=== PATIENT | female | born 1955 | race Caucasian/White ===

== ENCOUNTER 2017-01-17 08:20 | Outpatient (CLI) | payer MEDICARE ==
[2017-01-17 08:48] LABS: #Basophils 0.1 thou/uL (0.0-0.2); #Eosinphils 0.2 thou/uL (0.0-0.7); #Lymphocytes 2.6 thou/uL (1.20-3.40); #Monocytes 0.5 thou/uL (0.11-0.59); #Neutrophils 4.2 thou/uL (1.40-6.50); %Basophils 1.6 % (0.0-1.0); %Eosinophils 2.7 % (0.0-10.0); %Lymphocytes 34.7 % (21.0-51.0); %Monocytes 6.3 % (0.0-10.0); %Neutrophils 54.8 % (42.0-75.0); Hemoglobin 13.6 g/dL (12.0-16.0); Mean Corpuscular Hemoglobin 30.2 pg (27.0-31.0); Mean Corpuscular Volume 88.7 fl (81.0-99.0); Mean Platelet Volume 10.7 fL (7.4-10.4); Platelet Count 211 thou/uL (130-400); RBC Distribution Width 12.3 % (11.5-14.5); Red Blood Cell (RBC) Count 4.52 mill/uL (4.20-5.40); White Blood Cell (WBC) Count 7.6 thou/uL (4.8-10.8)
[2017-01-17 09:17] LABS: ALT (SGPT) 18 U/L (8-55); AST (SGOT) 15 U/L (5-34); Albumin 4.1 g/dL (3.4-4.8); Alkaline Phosphatase 87 U/L (40-150); Anion Gap 13 mmol/L (10-20); BUN (Urea Nitrogen) 18 mg/dL (9.8-20.1); Bilirubin, Total 0.5 mg/dL (0.2-1.2); Calc. Creatinine Clearance 0 mL/min (70-130); Calcium 9.3 mg/dL (7.8-10.44); Carbon Dioxide 24 mmol/L (23-31); Chloride 108 mmol/L (98-107); Estimated GFR-MDRD 54; Glucose 119 mg/dL (80-115); Potassium 4.3 mmol/L (3.5-5.1); Protein, Total 7.1 g/dL (6.0-8.3); Sodium 141 mmol/L (136-145)
[2017-01-17 14:06] LABS: Bacteria/HPF Rare-Few HPF (None Seen); Bilirubin Negative (Negative); Blood, Urine Negative (Negative); Clarity Clear (Clear); Glucose, Urine (Dipstick) Negative (Negative); Leukocyte Negative (Negative); Nitrite Negative (Negative); Protein, Urine (Dipstick) Negative (Neg-Trace); RBC/HPF 0-3 HPF (0-3); Squamous Epithelial 0-3 HPF (0-3); Urobilinogen 0.2 mg/dL (0.2-1.0); WBC/HPF None Seen HPF (0-3)
== END 2017-01-17 08:21 | disposition home or self-care (01) ==
LOC: MADLABBHPM 08:20
PROVIDERS: ATTEND Family Medicine
DX: E11.9 Type 2 diabetes mellitus without complications (principal)
CPT/HCPCS: 36415; 80053; 81001; 83036; 84443; 85025

== ENCOUNTER 2018-12-27 11:05 | Emergency (ER) | payer MEDICARE ==
[2018-12-27 11:48] LABS: #Basophils 0.1 thou/uL (0.0-0.2); #Eosinphils 0.2 thou/uL (0.0-0.7); #Lymphocytes 2.2 thou/uL (1.20-3.40); #Monocytes 0.4 thou/uL (0.11-0.59); #Neutrophils 4.4 thou/uL (1.40-6.50); %Basophils 1.4 % (0.0-1.0); %Eosinophils 2.6 % (0.0-10.0); %Lymphocytes 30.6 % (21.0-51.0); %Monocytes 4.8 % (0.0-10.0); %Neutrophils 60.6 % (42.0-75.0); Mean Corpuscular HGB CONC 32.3 g/dL (32.0-36.0); Mean Corpuscular Hemoglobin 28.6 pg (27.0-31.0); Mean Corpuscular Volume 88.5 fL (78.0-98.0); Mean Platelet Volume 9.7 fL (7.4-10.4); Platelet Count 187 thou/uL (130-400); RBC Distribution Width 12.9 % (11.5-14.5); White Blood Cell (WBC) Count 7.3 thou/uL (4.8-10.8)
[2018-12-27 12:03] LABS: ALT (SGPT) 25 U/L (8-55); AST (SGOT) 21 U/L (5-34); Alkaline Phosphatase 108 U/L (40-150); Anion Gap 13 mmol/L (10-20); BUN (Urea Nitrogen) 13 mg/dL (9.8-20.1); Bilirubin, Total 0.5 mg/dL (0.2-1.2); Calc. Creatinine Clearance 0 mL/min (70-130); Calcium 9.1 mg/dL (7.8-10.44); Carbon Dioxide 24 mmol/L (23-31); Chloride 105 mmol/L (98-107); Estimated GFR-MDRD 42; Globulin 2.8 g/dL (2.4-3.5); Glucose 238 mg/dL (80-115); Protein, Total 6.8 g/dL (6.0-8.3); Sodium 138 mmol/L (136-145)
--- NOTE | 2018-12-27 12:11 | CT ---
CT BRAIN WITHOUT CONTRAST: HISTORY:Syncope, fall, hit head with loss of consciousness, dizziness COMPARISON:None FINDINGS: There are foci of decreased attenuation in the periventricular white matter, consistent with chronic small vessel ischemic disease. 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 No evidence of acute infarct, hemorrhage, midline shift or abnormal extra-axial fluid collections is seen. The ventricular size is appropriate and the basilar cisterns are patent. The bony calvarium is intact. The visualized paranasal sinuses and mastoid air cells are well aerated. IMPRESSION: No CT evidence of acute intracranial process.
--- NOTE | 2018-12-27 12:16 | CT ---
CT CHEST WITHOUT CONTRAST :HISTORY: left-sided rib pain after fall FINDINGS: Absence of IV contrast reduces the sensitivity of the exam particularly for evaluation of mediastinal hilar vascular structures. Vascular injury cannot be excluded completely on the study. No pleural or pericardial effusions are seen. No pneumothoraces or pulmonary contusions are noted. There are postoperative changes of median sternotomy. There are vascular calcifications without aneur ysm of the thoracic aorta. There are degenerative changes in the spine. No acute osseous abnormalities are identified. Upper abdominal tomograms demonstrate cholelithiasis. A small hiatal hernia is present. IMPRESSION: No evidence of pulmonary contusions or pneumothorax.
--- NOTE | 2018-12-27 13:01 | CT ---
CERVICAL SPINE CT SCAN WITHOUT IV CONTRAST: HISTORY: Neck pain following injury from a fall yesterday. FINDINGS: Anterior cervical fusion changes are noted at C5, C6, and C7. Disk-osteophytosis at C4-C5. Generali zed facet arthrosis. No evidence for acute fracture or facet dislocation. No prevertebral soft tiss ue swelling. IMPRESSION: No acute fracture or facet dislocation. Anterior cervical fusion changes at C5, C6, and C7. POS: [facility]
[2018-12-27] MEDS ORDERED: Aspirin 325 MG TAB ONE (13:11)
[2018-12-27] MEDS ORDERED: Carvedilol 6.25 MG TAB ONE (16:13)
[2018-12-27] MEDS ORDERED: Lisinopril 10 MG TAB ONE (16:13)
== END 2018-12-27 21:09 | disposition short-term general hospital (02) ==
LOC: MADERS 11:05
DX: R55 Syncope and collapse (principal); E11.9 Type 2 diabetes mellitus without complications; E78.5 Hyperlipidemia, unspecified; I10 Essential (primary) hypertension; Z79.84 Long term (current) use of oral hypoglycemic drugs; Z79.82 Long term (current) use of aspirin; Z79.899 Other long term (current) drug therapy
CPT/HCPCS: 36416; 70450; 71250; 72125; 80053; 84484; 85025; 93005; 94760

== ENCOUNTER 2019-02-10 19:45 | Emergency (ER) | payer MEDICARE ==
[~2019-02-10 19:45] MED LIST: Iopamidol 370 76% 125 ML VIAL FS ONE; Sodium Chloride 0.9% 100 ML BAG ONE
[2019-02-10 20:12] LABS: #Basophils 0.1 thou/uL (0.0-0.2); #Eosinphils 0.2 thou/uL (0.0-0.7); #Lymphocytes 2.4 thou/uL (1.20-3.40); #Monocytes 0.7 thou/uL (0.11-0.59); #Neutrophils 4.4 thou/uL (1.40-6.50); %Basophils 1.6 % (0.0-1.0); %Eosinophils 3.1 % (0.0-10.0); %Lymphocytes 30.4 % (21.0-51.0); %Monocytes 8.4 % (0.0-10.0); %Neutrophils 56.5 % (42.0-75.0); Hemoglobin 13.9 g/dL (12.0-16.0); Mean Corpuscular HGB CONC 33.4 g/dL (32.0-36.0); Mean Corpuscular Hemoglobin 28.7 pg (27.0-31.0); Mean Corpuscular Volume 85.9 fL (78.0-98.0); Mean Platelet Volume 9.7 fL (7.4-10.4); Platelet Count 196 thou/uL (130-400); RBC Distribution Width 11.9 % (11.5-14.5); Red Blood Cell (RBC) Count 4.85 mill/uL (4.20-5.40); White Blood Cell (WBC) Count 7.8 thou/uL (4.8-10.8)
[2019-02-10 20:20] LABS: INR-International Normal Ratio 0.9; Prothrombin Time 12.1 SEC (12.0-14.7)
[2019-02-10 20:29] LABS: ALT (SGPT) 23 U/L (8-55); AST (SGOT) 23 U/L (5-34); Albumin 4.4 g/dL (3.4-4.8); Alkaline Phosphatase 112 U/L (40-150); Anion Gap 17 mmol/L (10-20); BUN (Urea Nitrogen) 14 mg/dL (9.8-20.1); Bilirubin, Total 0.4 mg/dL (0.2-1.2); Calc. Creatinine Clearance 0 mL/min (70-130); Calcium 9.1 mg/dL (7.8-10.44); Carbon Dioxide 23 mmol/L (23-31); Chloride 106 mmol/L (98-107); Estimated GFR-MDRD 45; Globulin 2.7 g/dL (2.4-3.5); Glucose 148 mg/dL (80-115); Protein, Total 7.1 g/dL (6.0-8.3); Sodium 142 mmol/L (136-145)
[2019-02-10] MEDS ORDERED: Ondansetron PF 4 MG/2 ML Vial ONE (20:46)
[2019-02-10] MEDS ORDERED: Aspirin Chewable 81 MG TAB ONE (21:07)
--- NOTE | 2019-02-10 21:53 | CT ---
CT BRAIN WITHOUT CONTRAST: HISTORY: Left arm and leg tingling with high blood pressure. Weakness. COMPARISON: 12/27/2018 TECHNIQUE: Multiple contiguous axial images were obtained in a CT of the brain without contrast. Sagittal and c oronal reformats were performed. FINDINGS: There are diffuse scattered hypodensities in the subcortical and periventricular white matter, likely secondary to small vessel ischemic disease. No large confluent infarction is seen. There is no alexander dence of hydrocephalus, intracranial hemorrhage, or extraaxial fluid collection. The calvarium and overlying soft tissues are unremarkable. The visualized paranasal sinuses and mast oid air cells are well aerated. IMPRESSION: No evidence of acute intracranial abnormality. POS: [facility]
--- NOTE | 2019-02-10 23:09 | CT ---
CTA HEAD WITH IV CONTRAST AND 3D POST PROCESSING: HISTORY: Left arm and left leg tingling with high blood pressure and weakness. FINDINGS: Vascular calcifications are present. There is good flow in the vertebrobasilar and carotid artery sy stems, intracranially. A dominant left vertebral artery is seen. No major branch occlusion, high-gr rafi stenosis, or aneurysm formation is seen. POS: [facility]
== END 2019-02-10 22:48 | disposition short-term general hospital (02) ==
LOC: MADERS 19:45
DX: I10 Essential (primary) hypertension (principal); E11.9 Type 2 diabetes mellitus without complications; E78.5 Hyperlipidemia, unspecified; Z79.84 Long term (current) use of oral hypoglycemic drugs; Z79.82 Long term (current) use of aspirin; Z79.899 Other long term (current) drug therapy
CPT/HCPCS: 70450; 70496; 80053; 84484; 85025; 85610; 93005; 96374; J2405; J3490; Q9967

== ENCOUNTER 2019-07-25 07:20 | Emergency (ER) | payer MEDICARE, OTHER ==
--- NOTE | 2019-07-25 07:44 | RAD ---
XR Chest 1 View Portable History: Weakness and nausea Comparison: Radiograph 2015 Findings: The lungs are clear. No pneumothorax. No effusion. Right axillary surgical clips. Multiple midline sternotomy wires. ACDF hardware lower cervical spine. No acute osseous abnormality. Impression: No acute intrathoracic abnormality.
[2019-07-25 07:50] LABS: #Basophils 0.1 thou/uL (0.0-0.2); #Eosinphils 0.1 thou/uL (0.0-0.7); #Monocytes 0.2 thou/uL (0.11-0.59); #Neutrophils 5.2 thou/uL (1.40-6.50); %Basophils 1.3 % (0.0-1.0); %Eosinophils 1.5 % (0.0-10.0); %Lymphocytes 26.2 % (21.0-51.0); %Monocytes 2.2 % (0.0-10.0); %Neutrophils 68.9 % (42.0-75.0); Hemoglobin 15.5 g/dL (12.0-16.0); Mean Corpuscular HGB CONC 30.5 g/dL (32.0-36.0); Mean Corpuscular Hemoglobin 26.8 pg (27.0-31.0); Mean Corpuscular Volume 87.8 fL (78.0-98.0); Mean Platelet Volume 10.8 fL (7.4-10.4); Platelet Count 189 thou/uL (130-400); RBC Distribution Width 12.9 % (11.5-14.5); Red Blood Cell (RBC) Count 5.79 mill/uL (4.20-5.40); White Blood Cell (WBC) Count 7.5 thou/uL (4.8-10.8)
[2019-07-25 08:04] LABS: ALT (SGPT) 23 U/L (8-55); AST (SGOT) 29 U/L (5-34); Alkaline Phosphatase 97 U/L (40-110); Anion Gap 16 mmol/L (10-20); BUN (Urea Nitrogen) 11 mg/dL (9.8-20.1); Calc. Creatinine Clearance 0 mL/min (70-130); Calcium 8.8 mg/dL (7.8-10.44); Carbon Dioxide 19 mmol/L (23-31); Chloride 109 mmol/L (98-107); Estimated GFR-MDRD 40; Globulin 2.8 g/dL (2.4-3.5); Glucose 143 mg/dL (80-115); Magnesium 1.7 mg/dL (1.6-2.6); Potassium 3.9 mmol/L (3.5-5.1); Protein, Total 6.8 g/dL (6.0-8.3); Sodium 140 mmol/L (136-145)
== END 2019-07-25 08:52 | disposition left against medical advice (07) ==
LOC: MADERS 07:20
DX: R53.1 Weakness (principal); R11.0 Nausea; E78.5 Hyperlipidemia, unspecified; I10 Essential (primary) hypertension; E11.9 Type 2 diabetes mellitus without complications; Z79.82 Long term (current) use of aspirin; Z79.891 Long term (current) use of opiate analgesic; Z79.84 Long term (current) use of oral hypoglycemic drugs; Z86.73 Personal history of transient ischemic attack (TIA), and cerebral infarction without residual deficits
CPT/HCPCS: 36415; 71045; 80053; 83605; 83735; 84484; 85025; 93005

== ENCOUNTER 2020-05-05 20:50 | Emergency (ER) | payer MEDICARE, OTHER ==
[2020-05-05 21:11] LABS: #Basophils 0.2 thou/uL (0.0-0.2); #Eosinphils 0.2 thou/uL (0.0-0.7); #Lymphocytes 3.9 thou/uL (1.20-3.40); #Monocytes 0.8 thou/uL (0.11-0.59); #Neutrophils 6.8 thou/uL (1.40-6.50); %Basophils 1.3 % (0.0-1.0); %Lymphocytes 32.5 % (21.0-51.0); %Neutrophils 57.2 % (42.0-75.0); Hemoglobin 16.2 g/dL (12.0-16.0); Mean Corpuscular Hemoglobin 28.8 pg (27.0-31.0); Mean Corpuscular Volume 87.3 fL (78.0-98.0); Mean Platelet Volume 9.5 fL (7.4-10.4); Platelet Count 274 thou/uL (130-400); RBC Distribution Width 11.9 % (11.5-14.5); Red Blood Cell (RBC) Count 5.63 mill/uL (4.20-5.40); White Blood Cell (WBC) Count 11.9 thou/uL (4.8-10.8)
--- NOTE | 2020-05-05 21:25 | RAD ---
CHEST ONE VIEW: 05/05/20 COMPARISON: 07/25/19. FINDINGS: There are sternotomy wires. There is atherosclerosis of the aorta. Normal cardiac silhouette. Pulmona ry vessels and hilum are normal. Costophrenic angles are clear. No mass or consolidation. No pneumoth orax or acute osseous abnormalities. IMPRESSION: Atherosclerosis. No acute cardiopulmonary process. POS: [facility]
[2020-05-05 21:31] LABS: ALT (SGPT) 27 U/L (8-55); AST (SGOT) 22 U/L (5-34); Albumin 4.3 g/dL (3.4-4.8); Alkaline Phosphatase 114 U/L (40-110); Anion Gap 22 mmol/L (10-20); BUN (Urea Nitrogen) 14 mg/dL (9.8-20.1); Bilirubin, Total 0.6 mg/dL (0.2-1.2); CK (CPK) 88 U/L (29-168); Calc. Creatinine Clearance 0 mL/min (70-130); Carbon Dioxide 17 mmol/L (23-31); Chloride 104 mmol/L (98-107); Estimated GFR-MDRD 36; Glucose 201 mg/dL (80-115); Lipase 55 U/L (8-78); Potassium 3.6 mmol/L (3.5-5.1); Protein, Total 7.3 g/dL (6.0-8.3); Sodium 139 mmol/L (136-145)
== END 2020-05-05 23:40 | disposition short-term general hospital (02) ==
LOC: MADERS 20:50
DX: R53.1 Weakness (principal); R61 Generalized hyperhidrosis; E11.9 Type 2 diabetes mellitus without complications; E78.5 Hyperlipidemia, unspecified; I10 Essential (primary) hypertension; Z79.82 Long term (current) use of aspirin; Z79.84 Long term (current) use of oral hypoglycemic drugs; Z79.899 Other long term (current) drug therapy; Z86.73 Personal history of transient ischemic attack (TIA), and cerebral infarction without residual deficits; Z85.3 Personal history of malignant neoplasm of breast
CPT/HCPCS: 71045; 80053; 82550; 83690; 84484; 85025; 93005

== ENCOUNTER 2020-10-10 09:43 | Emergency (ER) | payer MEDICARE, OTHER | END 2020-10-10 11:05 | disposition home or self-care (01) | LOC: MADERS 09:43 | DX: S42.114A Nondisplaced fracture of body of scapula, right shoulder, initial encounter for closed fracture (principal); E78.5 Hyperlipidemia, unspecified; E11.9 Type 2 diabetes mellitus without complications; I10 Essential (primary) hypertension; Z85.3 Personal history of malignant neoplasm of breast; Z86.73 Personal history of transient ischemic attack (TIA), and cerebral infarction without residual deficits; W19.XXXA Unspecified fall, initial encounter ==

== ENCOUNTER 2021-05-28 20:41 | Emergency (ER) | payer MEDICARE, OTHER | END 2021-05-28 21:46 | disposition left against medical advice (07) | LOC: MADERS 20:41 | DX: Z53.21 Procedure and treatment not carried out due to patient leaving prior to being seen by health care provider (principal) ==

== ENCOUNTER 2021-09-17 16:45 | Emergency (ER) | payer MEDICARE, OTHER ==
[2021-09-17 17:35] LABS: ALT (SGPT) 21 U/L (8-55); AST (SGOT) 32 U/L (5-34); Albumin 3.4 g/dL (3.4-4.8); Alkaline Phosphatase 68 U/L (40-110); Anion Gap 15 mmol/L (10-20); BUN (Urea Nitrogen) 16 mg/dL (9.8-20.1); Bilirubin, Total 0.6 mg/dL (0.2-1.2); Calc. Creatinine Clearance 0 mL/min (70-130); Calcium 7.9 mg/dL (7.8-10.44); Carbon Dioxide 21 mmol/L (23-31); Chloride 106 mmol/L (98-107); Globulin 2.5 g/dL (2.4-3.5); Glucose 113 mg/dL (80-115); Magnesium 1.6 mg/dL (1.6-2.6); Potassium 3.8 mmol/L (3.5-5.1); Protein, Total 5.9 g/dL (5.8-8.1); Sodium 138 mmol/L (136-145)
[2021-09-17 17:45] LABS: Band 2 % (5-11); Eosinophils 3 % (0-10); Hemoglobin 14.5 g/dL (12.0-16.0); Lymphocytes 12 % (21-51); MDiff Complete? YES; Mean Corpuscular Hemoglobin 28.7 pg (27.0-31.0); Mean Corpuscular Volume 86.8 fL (78.0-98.0); Mean Platelet Volume 9.7 fL (7.4-10.4); Monocytes 7 % (0-10); Neutrophil 49 % (42-75); Platelet Count 146 thou/uL (130-400); Platelet Morphology Comment Appears Adequate; RBC Distribution Width 11.4 % (11.5-14.5); RBC Morphology Normal; Reactive Lymphocytes 27 % (0-10); Red Blood Cell (RBC) Count 5.06 mill/uL (4.20-5.40); White Blood Cell (WBC) Count 6.2 thou/uL (4.8-10.8)
[2021-09-17 18:54] LABS: Bilirubin Negative (Negative); Blood, Urine Negative (Negative); Clarity Slightly Cloudy (Clear); Glucose, Urine (Dipstick) Negative (Negative); Ketone, Urine Negative (Negative); Leukocyte Small (Negative); Nitrite Negative (Negative); Protein, Urine (Dipstick) Negative (Neg-Trace); Urobilinogen 0.2 mg/dL (Less than 2); pH, Urine 6.5 (5.0-9.0)
[2021-09-17 18:59] LABS: Bacteria/HPF Rare-Few HPF (None Seen); RBC/HPF 0-3 HPF (0-3); WBC/HPF 21-50 HPF (0-3)
[2021-09-17] MEDS ORDERED: Sodium Chloride 0.9% 100 ML ONE (19:22)
[2021-09-17] MEDS ORDERED: cefTRIAXone\\ROCEPHIN 1 GM VIAL ONE (19:22)
== END 2021-09-17 20:00 | disposition home or self-care (01) ==
LOC: MADERS 16:45
DX: N39.0 Urinary tract infection, site not specified (principal); R53.1 Weakness; I45.2 Bifascicular block
CPT/HCPCS: 36415; 80053; 81003; 81015; 83735; 83880; 84443; 84484; 85025; 93005; 96365; J0696; J3490

== ENCOUNTER 2021-09-27 16:04 | Inpatient (IN) | payer MEDICARE, OTHER ==
[2021-09-27] MEDS ORDERED: Senokot S 8.6-50 MG TAB PO PRN (22:24)
[2021-09-27] MEDS ORDERED: Ondansetron ODT 4 MG TAB PO PRN (22:24)
[2021-09-27] MEDS ORDERED: Guaifenesin DM 100-10/5 ML UDCUP PO PRN (22:24)
[2021-09-27] MEDS ORDERED: Albuterol 200 PUFF (6.7GM INHALER) INH PRN (22:26)
[2021-09-27 23:08] LABS: Bilirubin Negative (Negative); Blood, Urine Small (Negative); Clarity Clear (Clear); Glucose, Urine (Dipstick) Negative (Negative); Ketone, Urine Negative (Negative); Leukocyte Small (Negative); Nitrite Negative (Negative); Protein, Urine (Dipstick) Negative (Neg-Trace); Urobilinogen 0.2 mg/dL (Less than 2); pH, Urine 6.5 (5.0-9.0)
[2021-09-27 23:25] LABS: Bacteria/HPF None Seen HPF (None Seen); Calcium Oxalate Crystals 1+ HPF (None Seen); Squamous Epithelial None Seen HPF (0-3); Transitional Epithelial None Seen HPF (None Seen); Yeast-Hyphae 1+ HPF (None Seen)
[2021-09-28] MEDS: Enoxaparin Sodium 40 MG/0.4 ML SYRINGE SC SCH (09:52)
[2021-09-28] MEDS: Cholecalciferol 1,000 UNITS (25 MCG) TAB PO SCH (09:53)
[2021-09-28] MEDS: Lisinopril 5 MG TAB PO SCH ×2 (09:53→20:53)
[2021-09-28] MEDS: Carvedilol 6.25 MG TAB PO SCH ×2 (09:53→20:54)
[2021-09-28] MEDS: Zinc Sulfate 220 MG CAP PO SCH (09:53)
[2021-09-28] MEDS: Ascorbic Acid 500 mg Chewable Tablet PO SCH (09:53)
[2021-09-28] MEDS: Ezetimibe 10 MG TAB PO SCH (09:53)
[2021-09-28] MEDS: NIFEdipine XL 30 MG TAB PO SCH (10:44)
[2021-09-28] MEDS: Tamsulosin HCl 0.4 MG CAP PO SCH (20:53)
[2021-09-28] MEDS: Mirtazapine 15 MG TAB PO SCH (20:54)
[2021-09-29] MEDS: Enoxaparin Sodium 40 MG/0.4 ML SYRINGE SC SCH (09:05)
[2021-09-29] MEDS: NIFEdipine XL 30 MG TAB PO SCH (09:05)
[2021-09-29] MEDS: Ascorbic Acid 500 mg Chewable Tablet PO SCH (09:06)
[2021-09-29] MEDS: Ezetimibe 10 MG TAB PO SCH (09:06)
[2021-09-29] MEDS: Lisinopril 5 MG TAB PO SCH ×2 (09:06→20:23)
[2021-09-29] MEDS: Cholecalciferol 1,000 UNITS (25 MCG) TAB PO SCH (09:06)
[2021-09-29] MEDS: Carvedilol 6.25 MG TAB PO SCH ×2 (09:06→20:23)
[2021-09-29] MEDS: Zinc Sulfate 220 MG CAP PO SCH (09:06)
[2021-09-29] MEDS: Acetaminophen 325 MG TAB PO PRN (20:23)
[2021-09-29] MEDS: Mirtazapine 15 MG TAB PO SCH (20:24)
[2021-09-29] MEDS: Tamsulosin HCl 0.4 MG CAP PO SCH (20:24)
[2021-09-30] MEDS: Ascorbic Acid 500 mg Chewable Tablet PO SCH (08:43)
[2021-09-30] MEDS: NIFEdipine XL 30 MG TAB PO SCH (08:43)
[2021-09-30] MEDS: Zinc Sulfate 220 MG CAP PO SCH (08:43)
[2021-09-30] MEDS: Enoxaparin Sodium 40 MG/0.4 ML SYRINGE SC SCH (08:43)
[2021-09-30] MEDS: Cholecalciferol 1,000 UNITS (25 MCG) TAB PO SCH (08:43)
[2021-09-30] MEDS: Lisinopril 5 MG TAB PO SCH ×2 (08:43→21:40)
[2021-09-30] MEDS: Ezetimibe 10 MG TAB PO SCH (08:43)
[2021-09-30] MEDS: Carvedilol 6.25 MG TAB PO SCH ×2 (08:43→21:40)
[2021-09-30] MEDS: Acetaminophen 325 MG TAB PO PRN (08:44)
[2021-09-30 11:12] LABS: #Basophils 0.2 thou/uL (0.0-0.2); #Eosinphils 0.5 thou/uL (0.0-0.7); #Monocytes 1.2 thou/uL (0.11-0.59); #Neutrophils 11.5 thou/uL (1.40-6.50); %Basophils 1.2 % (0.0-1.0); %Eosinophils 3.5 % (0.0-10.0); %Lymphocytes 12.8 % (21.0-51.0); %Monocytes 7.8 % (0.0-10.0); %Neutrophils 74.7 % (42.0-75.0); Hemoglobin 13.6 g/dL (12.0-16.0); Mean Corpuscular HGB CONC 32.8 g/dL (32.0-36.0); Mean Corpuscular Hemoglobin 28.7 pg (27.0-31.0); Mean Corpuscular Volume 87.2 fL (78.0-98.0); Mean Platelet Volume 8.1 fL (7.4-10.4); Platelet Count 243 thou/uL (130-400); RBC Distribution Width 11.3 % (11.5-14.5); Red Blood Cell (RBC) Count 4.74 mill/uL (4.20-5.40); White Blood Cell (WBC) Count 15.4 thou/uL (4.8-10.8)
[2021-09-30] MEDS ORDERED: Calcium Carbonate 500 MG ChewTAB PO PRN (11:36)
[2021-09-30] MEDS: Famotidine 20 MG TAB PO SCH ×2 (12:10→21:40)
[2021-09-30] MEDS: metFORMIN 500 MG TAB PO SCH (17:08)
[2021-09-30] MEDS: Mirtazapine 15 MG TAB PO SCH (21:40)
[2021-09-30] MEDS: Tamsulosin HCl 0.4 MG CAP PO SCH (21:40)
[2021-10-01] MEDS ORDERED: predniSONE 20 MG TAB PO SCH (08:00)
[2021-10-01] MEDS: Ezetimibe 10 MG TAB PO SCH (08:57)
[2021-10-01] MEDS: Enoxaparin Sodium 40 MG/0.4 ML SYRINGE SC SCH (08:57)
[2021-10-01] MEDS: NIFEdipine XL 30 MG TAB PO SCH (08:57)
[2021-10-01] MEDS: Carvedilol 6.25 MG TAB PO SCH ×2 (08:57→20:58)
[2021-10-01] MEDS: Zinc Sulfate 220 MG CAP PO SCH (08:57)
[2021-10-01] MEDS: metFORMIN 500 MG TAB PO SCH ×2 (08:57→17:37)
[2021-10-01] MEDS: Ascorbic Acid 500 mg Chewable Tablet PO SCH (08:58)
[2021-10-01] MEDS: Lisinopril 5 MG TAB PO SCH ×2 (08:58→20:58)
[2021-10-01] MEDS: Cholecalciferol 1,000 UNITS (25 MCG) TAB PO SCH (08:58)
[2021-10-01] MEDS: Famotidine 20 MG TAB PO SCH ×2 (09:01→20:58)
[2021-10-01] MEDS: Tamsulosin HCl 0.4 MG CAP PO SCH (20:57)
[2021-10-01] MEDS: Mirtazapine 15 MG TAB PO SCH (20:57)
[2021-10-01] MEDS ORDERED: Dextrose 5% in Water 1,000 ML IV PRN (21:00)
[2021-10-01] MEDS ORDERED: Dextrose 50% Abboject 50 ML SYRINGE IVP PRN (21:00)
[2021-10-01] MEDS: HumaLOG 300 UNITS/3 ML VIAL SC PRN (21:20)
[2021-10-02] MEDS ORDERED: predniSONE 20 MG TAB PO SCH (08:00)
[2021-10-02] MEDS: NIFEdipine XL 30 MG TAB PO SCH (08:18)
[2021-10-02] MEDS: metFORMIN 500 MG TAB PO SCH ×2 (08:18→16:59)
[2021-10-02] MEDS: Ascorbic Acid 500 mg Chewable Tablet PO SCH (08:18)
[2021-10-02] MEDS: Enoxaparin Sodium 40 MG/0.4 ML SYRINGE SC SCH (08:18)
[2021-10-02] MEDS: Zinc Sulfate 220 MG CAP PO SCH (08:18)
[2021-10-02] MEDS: Cholecalciferol 1,000 UNITS (25 MCG) TAB PO SCH (08:18)
[2021-10-02] MEDS: Carvedilol 6.25 MG TAB PO SCH ×2 (08:18→21:21)
[2021-10-02] MEDS: Lisinopril 5 MG TAB PO SCH ×2 (08:19→21:21)
[2021-10-02] MEDS: Ezetimibe 10 MG TAB PO SCH (08:19)
[2021-10-02] MEDS: Famotidine 20 MG TAB PO SCH ×2 (08:20→21:20)
[2021-10-02] MEDS: HumaLOG 300 UNITS/3 ML VIAL SC PRN ×3 (08:26→16:59)
[2021-10-02] MEDS ORDERED: predniSONE 10 MG TAB PO SCH (08:30)
[2021-10-02] MEDS: Mirtazapine 15 MG TAB PO SCH (21:20)
[2021-10-02] MEDS: Tamsulosin HCl 0.4 MG CAP PO SCH (21:20)
[2021-10-03] MEDS ORDERED: predniSONE 10 MG TAB PO SCH (08:00)
[2021-10-03] MEDS: Enoxaparin Sodium 40 MG/0.4 ML SYRINGE SC SCH (09:52)
[2021-10-03] MEDS: Zinc Sulfate 220 MG CAP PO SCH (09:52)
[2021-10-03] MEDS: metFORMIN 500 MG TAB PO SCH ×2 (09:53→17:43)
[2021-10-03] MEDS: NIFEdipine XL 30 MG TAB PO SCH (09:53)
[2021-10-03] MEDS: Lisinopril 5 MG TAB PO SCH ×2 (09:53→20:25)
[2021-10-03] MEDS: Cholecalciferol 1,000 UNITS (25 MCG) TAB PO SCH (09:53)
[2021-10-03] MEDS: Carvedilol 6.25 MG TAB PO SCH ×2 (09:53→20:25)
[2021-10-03] MEDS: Ezetimibe 10 MG TAB PO SCH (09:54)
[2021-10-03] MEDS: Famotidine 20 MG TAB PO SCH ×2 (09:54→20:26)
[2021-10-03] MEDS: Ascorbic Acid 500 mg Chewable Tablet PO SCH (09:54)
[2021-10-03] MEDS: Mirtazapine 15 MG TAB PO SCH (20:25)
[2021-10-03] MEDS: Tamsulosin HCl 0.4 MG CAP PO SCH (20:26)
[2021-10-04] MEDS ORDERED: predniSONE 20 MG TAB PO SCH (08:00)
[2021-10-04] MEDS: metFORMIN 500 MG TAB PO SCH ×2 (09:40→17:07)
[2021-10-04] MEDS: Ascorbic Acid 500 mg Chewable Tablet PO SCH (09:40)
[2021-10-04] MEDS: Ezetimibe 10 MG TAB PO SCH (09:41)
[2021-10-04] MEDS: Lisinopril 5 MG TAB PO SCH ×2 (09:41→21:11)
[2021-10-04] MEDS: Enoxaparin Sodium 40 MG/0.4 ML SYRINGE SC SCH (09:41)
[2021-10-04] MEDS: Zinc Sulfate 220 MG CAP PO SCH (09:41)
[2021-10-04] MEDS: Cholecalciferol 1,000 UNITS (25 MCG) TAB PO SCH (09:41)
[2021-10-04] MEDS: Carvedilol 6.25 MG TAB PO SCH ×2 (09:41→21:10)
[2021-10-04] MEDS: Famotidine 20 MG TAB PO SCH ×2 (09:41→21:11)
[2021-10-04] MEDS: NIFEdipine XL 30 MG TAB PO SCH (09:43)
[2021-10-04] MEDS: HumaLOG 300 UNITS/3 ML VIAL SC PRN ×3 (11:56→21:15)
[2021-10-04] MEDS: Mirtazapine 15 MG TAB PO SCH (21:11)
[2021-10-04] MEDS: Tamsulosin HCl 0.4 MG CAP PO SCH (21:12)
[2021-10-05] MEDS: NIFEdipine XL 30 MG TAB PO SCH (08:23)
[2021-10-05] MEDS: Carvedilol 6.25 MG TAB PO SCH ×2 (08:24→21:37)
[2021-10-05] MEDS: Cholecalciferol 1,000 UNITS (25 MCG) TAB PO SCH (08:24)
[2021-10-05] MEDS: predniSONE 20 MG TAB PO SCH (08:24)
[2021-10-05] MEDS: Famotidine 20 MG TAB PO SCH ×2 (08:24→21:37)
[2021-10-05] MEDS: Ezetimibe 10 MG TAB PO SCH (08:24)
[2021-10-05] MEDS: Zinc Sulfate 220 MG CAP PO SCH (08:24)
[2021-10-05] MEDS: Ascorbic Acid 500 mg Chewable Tablet PO SCH (08:24)
[2021-10-05] MEDS: Lisinopril 5 MG TAB PO SCH ×2 (08:24→21:37)
[2021-10-05] MEDS: Enoxaparin Sodium 40 MG/0.4 ML SYRINGE SC SCH (08:25)
[2021-10-05] MEDS: metFORMIN 500 MG TAB PO SCH ×2 (08:25→17:16)
[2021-10-05] MEDS: HumaLOG 300 UNITS/3 ML VIAL SC PRN ×2 (11:50→17:15)
[2021-10-05] MEDS: Mirtazapine 15 MG TAB PO SCH (21:37)
[2021-10-05] MEDS: Tamsulosin HCl 0.4 MG CAP PO SCH (21:37)
[2021-10-06] MEDS: Acetaminophen 325 MG TAB PO PRN (01:57)
[2021-10-06] MEDS: NIFEdipine XL 30 MG TAB PO SCH (08:19)
[2021-10-06] MEDS: Zinc Sulfate 220 MG CAP PO SCH (08:19)
[2021-10-06] MEDS: Ezetimibe 10 MG TAB PO SCH (08:19)
[2021-10-06] MEDS: Enoxaparin Sodium 40 MG/0.4 ML SYRINGE SC SCH (08:19)
[2021-10-06] MEDS: Ascorbic Acid 500 mg Chewable Tablet PO SCH (08:19)
[2021-10-06] MEDS: Carvedilol 6.25 MG TAB PO SCH ×2 (08:20→20:32)
[2021-10-06] MEDS: Cholecalciferol 1,000 UNITS (25 MCG) TAB PO SCH (08:20)
[2021-10-06] MEDS: predniSONE 20 MG TAB PO SCH (08:20)
[2021-10-06] MEDS: metFORMIN 500 MG TAB PO SCH ×2 (08:20→17:13)
[2021-10-06] MEDS: Lisinopril 5 MG TAB PO SCH ×2 (08:20→20:32)
[2021-10-06] MEDS: Famotidine 20 MG TAB PO SCH ×2 (08:21→20:32)
[2021-10-06] MEDS: HumaLOG 300 UNITS/3 ML VIAL SC PRN (17:13)
[2021-10-06] MEDS: Tamsulosin HCl 0.4 MG CAP PO SCH (20:32)
[2021-10-06] MEDS: Mirtazapine 15 MG TAB PO SCH (20:32)
[2021-10-07] MEDS: Ascorbic Acid 500 mg Chewable Tablet PO SCH (08:20)
[2021-10-07] MEDS: predniSONE 20 MG TAB PO SCH (08:21)
[2021-10-07] MEDS: metFORMIN 500 MG TAB PO SCH ×2 (08:21→16:44)
[2021-10-07] MEDS: Carvedilol 6.25 MG TAB PO SCH ×2 (08:22→20:11)
[2021-10-07] MEDS: Ezetimibe 10 MG TAB PO SCH (08:23)
[2021-10-07] MEDS: Enoxaparin Sodium 40 MG/0.4 ML SYRINGE SC SCH (08:23)
[2021-10-07] MEDS: Cholecalciferol 1,000 UNITS (25 MCG) TAB PO SCH (08:23)
[2021-10-07] MEDS: Lisinopril 5 MG TAB PO SCH ×2 (08:24→20:10)
[2021-10-07] MEDS: Famotidine 20 MG TAB PO SCH ×2 (08:24→20:11)
[2021-10-07] MEDS: NIFEdipine XL 30 MG TAB PO SCH (08:25)
[2021-10-07] MEDS: Zinc Sulfate 220 MG CAP PO SCH (08:26)
[2021-10-07] MEDS: HumaLOG 300 UNITS/3 ML VIAL SC PRN (16:45)
[2021-10-07] MEDS: Mirtazapine 15 MG TAB PO SCH (20:10)
[2021-10-07] MEDS: Tamsulosin HCl 0.4 MG CAP PO SCH (20:11)
[2021-10-08] MEDS: Cholecalciferol 1,000 UNITS (25 MCG) TAB PO SCH (08:49)
[2021-10-08] MEDS: NIFEdipine XL 30 MG TAB PO SCH (08:49)
[2021-10-08] MEDS: Enoxaparin Sodium 40 MG/0.4 ML SYRINGE SC SCH (08:49)
[2021-10-08] MEDS: Zinc Sulfate 220 MG CAP PO SCH (08:49)
[2021-10-08] MEDS: Famotidine 20 MG TAB PO SCH ×2 (08:50→20:32)
[2021-10-08] MEDS: Ezetimibe 10 MG TAB PO SCH (08:50)
[2021-10-08] MEDS: metFORMIN 500 MG TAB PO SCH ×2 (08:50→17:18)
[2021-10-08] MEDS: Carvedilol 6.25 MG TAB PO SCH ×2 (08:50→20:33)
[2021-10-08] MEDS: Ascorbic Acid 500 mg Chewable Tablet PO SCH (08:50)
[2021-10-08] MEDS: predniSONE 5 MG TAB PO SCH (08:50)
[2021-10-08] MEDS: Lisinopril 5 MG TAB PO SCH ×2 (08:50→20:33)
[2021-10-08] MEDS: HumaLOG 300 UNITS/3 ML VIAL SC PRN (17:19)
[2021-10-08] MEDS: Mirtazapine 15 MG TAB PO SCH (20:33)
[2021-10-08] MEDS: Tamsulosin HCl 0.4 MG CAP PO SCH (20:34)
[2021-10-09] MEDS: NIFEdipine XL 30 MG TAB PO SCH (08:43)
[2021-10-09] MEDS: Enoxaparin Sodium 40 MG/0.4 ML SYRINGE SC SCH (08:43)
[2021-10-09] MEDS: Cholecalciferol 1,000 UNITS (25 MCG) TAB PO SCH (08:44)
[2021-10-09] MEDS: Ezetimibe 10 MG TAB PO SCH (08:44)
[2021-10-09] MEDS: Zinc Sulfate 220 MG CAP PO SCH (08:44)
[2021-10-09] MEDS: Lisinopril 5 MG TAB PO SCH ×2 (08:44→20:41)
[2021-10-09] MEDS: Carvedilol 6.25 MG TAB PO SCH ×2 (08:44→20:42)
[2021-10-09] MEDS: metFORMIN 500 MG TAB PO SCH ×2 (08:44→17:32)
[2021-10-09] MEDS: predniSONE 5 MG TAB PO SCH (08:44)
[2021-10-09] MEDS: Ascorbic Acid 500 mg Chewable Tablet PO SCH (08:45)
[2021-10-09] MEDS: Famotidine 20 MG TAB PO SCH ×2 (08:45→20:41)
[2021-10-09] MEDS: HumaLOG 300 UNITS/3 ML VIAL SC PRN (17:32)
[2021-10-09] MEDS: Mirtazapine 15 MG TAB PO SCH (20:42)
[2021-10-09] MEDS: Tamsulosin HCl 0.4 MG CAP PO SCH (20:42)
[2021-10-10] MEDS: Cholecalciferol 1,000 UNITS (25 MCG) TAB PO SCH (08:32)
[2021-10-10] MEDS: Carvedilol 6.25 MG TAB PO SCH ×2 (08:32→20:44)
[2021-10-10] MEDS: metFORMIN 500 MG TAB PO SCH ×2 (08:32→16:45)
[2021-10-10] MEDS: Ascorbic Acid 500 mg Chewable Tablet PO SCH (08:32)
[2021-10-10] MEDS: predniSONE 5 MG TAB PO SCH (08:32)
[2021-10-10] MEDS: Ezetimibe 10 MG TAB PO SCH (08:33)
[2021-10-10] MEDS: Famotidine 20 MG TAB PO SCH ×2 (08:33→20:43)
[2021-10-10] MEDS: Enoxaparin Sodium 40 MG/0.4 ML SYRINGE SC SCH (08:33)
[2021-10-10] MEDS: Lisinopril 5 MG TAB PO SCH ×2 (08:33→20:44)
[2021-10-10] MEDS: NIFEdipine XL 30 MG TAB PO SCH (08:36)
[2021-10-10] MEDS: Zinc Sulfate 220 MG CAP PO SCH (08:36)
[2021-10-10] MEDS: HumaLOG 300 UNITS/3 ML VIAL SC PRN (16:45)
[2021-10-10] MEDS: Mirtazapine 15 MG TAB PO SCH (20:43)
[2021-10-10] MEDS: Tamsulosin HCl 0.4 MG CAP PO SCH (20:44)
[2021-10-11 05:48] LABS: Anion Gap 17 mmol/L (10-20); BUN (Urea Nitrogen) 19 mg/dL (9.8-20.1); Calc. Creatinine Clearance 73 mL/min (70-130); Calcium 9.1 mg/dL (7.8-10.44); Carbon Dioxide 19 mmol/L (23-31); Chloride 110 mmol/L (98-107); Glucose 106 mg/dL (80-115); Potassium 3.9 mmol/L (3.5-5.1); Sodium 142 mmol/L (136-145)
[2021-10-11] MEDS: Ezetimibe 10 MG TAB PO SCH (08:24)
[2021-10-11] MEDS: Ascorbic Acid 500 mg Chewable Tablet PO SCH (08:24)
[2021-10-11] MEDS: Cholecalciferol 1,000 UNITS (25 MCG) TAB PO SCH (08:24)
[2021-10-11] MEDS: Lisinopril 5 MG TAB PO SCH ×2 (08:24→20:51)
[2021-10-11] MEDS: Aspirin 81 mg Enteric Coated Tablet PO SCH (08:24)
[2021-10-11] MEDS: metFORMIN 500 MG TAB PO SCH ×2 (08:24→16:57)
[2021-10-11] MEDS: Zinc Sulfate 220 MG CAP PO SCH (08:24)
[2021-10-11] MEDS: Famotidine 20 MG TAB PO SCH ×2 (08:24→20:52)
[2021-10-11] MEDS: NIFEdipine XL 30 MG TAB PO SCH (08:24)
[2021-10-11] MEDS: Carvedilol 6.25 MG TAB PO SCH ×2 (08:24→20:51)
[2021-10-11] MEDS: Mirtazapine 15 MG TAB PO SCH (20:52)
[2021-10-11] MEDS: Tamsulosin HCl 0.4 MG CAP PO SCH (20:52)
[2021-10-12] MEDS: NIFEdipine XL 30 MG TAB PO SCH (07:56)
[2021-10-12] MEDS: Ezetimibe 10 MG TAB PO SCH (07:56)
[2021-10-12] MEDS: Zinc Sulfate 220 MG CAP PO SCH (07:56)
[2021-10-12] MEDS: metFORMIN 500 MG TAB PO SCH ×2 (07:57→16:56)
[2021-10-12] MEDS: Carvedilol 6.25 MG TAB PO SCH ×2 (07:57→20:28)
[2021-10-12] MEDS: Cholecalciferol 1,000 UNITS (25 MCG) TAB PO SCH (07:57)
[2021-10-12] MEDS: Ascorbic Acid 500 mg Chewable Tablet PO SCH (07:57)
[2021-10-12] MEDS: Aspirin 81 mg Enteric Coated Tablet PO SCH (07:57)
[2021-10-12] MEDS: Famotidine 20 MG TAB PO SCH ×2 (07:57→20:32)
[2021-10-12] MEDS: Lisinopril 5 MG TAB PO SCH ×2 (07:57→20:28)
[2021-10-12] MEDS: Mirtazapine 15 MG TAB PO SCH (20:28)
[2021-10-12] MEDS: Tamsulosin HCl 0.4 MG CAP PO SCH (20:29)
[2021-10-13] MEDS: Ezetimibe 10 MG TAB PO SCH (08:29)
[2021-10-13] MEDS: Famotidine 20 MG TAB PO SCH ×2 (08:29→20:58)
[2021-10-13] MEDS: metFORMIN 500 MG TAB PO SCH ×2 (08:29→17:19)
[2021-10-13] MEDS: Lisinopril 5 MG TAB PO SCH ×2 (08:29→21:00)
[2021-10-13] MEDS: Aspirin 81 mg Enteric Coated Tablet PO SCH (08:29)
[2021-10-13] MEDS: Carvedilol 6.25 MG TAB PO SCH ×2 (08:29→20:58)
[2021-10-13] MEDS: Cholecalciferol 1,000 UNITS (25 MCG) TAB PO SCH (08:29)
[2021-10-13] MEDS: NIFEdipine XL 30 MG TAB PO SCH (08:30)
[2021-10-13] MEDS: Zinc Sulfate 220 MG CAP PO SCH (08:30)
[2021-10-13] MEDS: Ascorbic Acid 500 mg Chewable Tablet PO SCH (08:31)
[2021-10-13] MEDS: HumaLOG 300 UNITS/3 ML VIAL SC PRN (08:32)
[2021-10-13] MEDS: Mirtazapine 15 MG TAB PO SCH (20:58)
[2021-10-13] MEDS: Tamsulosin HCl 0.4 MG CAP PO SCH (20:58)
[2021-10-14] MEDS: HumaLOG 300 UNITS/3 ML VIAL SC PRN (08:04)
[2021-10-14] MEDS: Aspirin 81 mg Enteric Coated Tablet PO SCH (08:05)
[2021-10-14] MEDS: NIFEdipine XL 30 MG TAB PO SCH (08:11)
[2021-10-14] MEDS: Lisinopril 5 MG TAB PO SCH (08:12)
[2021-10-14] MEDS: Ascorbic Acid 500 mg Chewable Tablet PO SCH (08:13)
[2021-10-14] MEDS: metFORMIN 500 MG TAB PO SCH ×2 (08:13→17:02)
[2021-10-14] MEDS: Carvedilol 6.25 MG TAB PO SCH ×2 (08:14→21:02)
[2021-10-14] MEDS: Famotidine 20 MG TAB PO SCH ×2 (08:14→21:02)
[2021-10-14] MEDS: Cholecalciferol 1,000 UNITS (25 MCG) TAB PO SCH (08:14)
[2021-10-14] MEDS: Zinc Sulfate 220 MG CAP PO SCH (08:14)
[2021-10-14] MEDS: Ezetimibe 10 MG TAB PO SCH (08:14)
[2021-10-14] MEDS: Mirtazapine 15 MG TAB PO SCH (21:02)
[2021-10-14] MEDS: Tamsulosin HCl 0.4 MG CAP PO SCH (21:02)
[2021-10-15] MEDS: Famotidine 20 MG TAB PO SCH ×2 (07:59→20:57)
[2021-10-15] MEDS: metFORMIN 500 MG TAB PO SCH ×2 (07:59→16:56)
[2021-10-15] MEDS: Ezetimibe 10 MG TAB PO SCH (07:59)
[2021-10-15] MEDS: Carvedilol 6.25 MG TAB PO SCH ×2 (07:59→20:57)
[2021-10-15] MEDS: Cholecalciferol 1,000 UNITS (25 MCG) TAB PO SCH (07:59)
[2021-10-15] MEDS: Ascorbic Acid 500 mg Chewable Tablet PO SCH (07:59)
[2021-10-15] MEDS: Zinc Sulfate 220 MG CAP PO SCH (07:59)
[2021-10-15] MEDS: Aspirin 81 mg Enteric Coated Tablet PO SCH (07:59)
[2021-10-15] MEDS: Tamsulosin HCl 0.4 MG CAP PO SCH (20:57)
[2021-10-15] MEDS: Mirtazapine 15 MG TAB PO SCH (20:57)
[2021-10-16] MEDS: Aspirin 81 mg Enteric Coated Tablet PO SCH (08:32)
[2021-10-16] MEDS: Zinc Sulfate 220 MG CAP PO SCH (08:32)
[2021-10-16] MEDS: Cholecalciferol 1,000 UNITS (25 MCG) TAB PO SCH (08:32)
[2021-10-16] MEDS: Ascorbic Acid 500 mg Chewable Tablet PO SCH (08:32)
[2021-10-16] MEDS: Ezetimibe 10 MG TAB PO SCH (08:32)
[2021-10-16] MEDS: metFORMIN 500 MG TAB PO SCH ×2 (08:32→16:51)
[2021-10-16] MEDS: Famotidine 20 MG TAB PO SCH ×2 (08:32→19:34)
[2021-10-16] MEDS: Carvedilol 6.25 MG TAB PO SCH ×2 (08:32→19:34)
[2021-10-16] MEDS: Tamsulosin HCl 0.4 MG CAP PO SCH (19:33)
[2021-10-16] MEDS: Mirtazapine 15 MG TAB PO SCH (19:33)
[2021-10-17] MEDS: Cholecalciferol 1,000 UNITS (25 MCG) TAB PO SCH (09:32)
[2021-10-17] MEDS: Ascorbic Acid 500 mg Chewable Tablet PO SCH (09:32)
[2021-10-17] MEDS: Zinc Sulfate 220 MG CAP PO SCH (09:33)
[2021-10-17] MEDS: Carvedilol 6.25 MG TAB PO SCH (09:33)
[2021-10-17] MEDS: Famotidine 20 MG TAB PO SCH (09:33)
[2021-10-17] MEDS: Aspirin 81 mg Enteric Coated Tablet PO SCH (09:33)
[2021-10-17] MEDS: metFORMIN 500 MG TAB PO SCH ×2 (09:33→16:50)
[2021-10-17] MEDS: Ezetimibe 10 MG TAB PO SCH (09:33)
[2021-10-17] MEDS: HumaLOG 300 UNITS/3 ML VIAL SC PRN (17:24)
[2021-10-17 21:44] VITALS: BMI 23.9
[2021-10-18] MEDS: Famotidine 20 MG TAB PO SCH ×3 (00:01→21:21)
[2021-10-18] MEDS: Tamsulosin HCl 0.4 MG CAP PO SCH ×2 (00:01→21:21)
[2021-10-18] MEDS: Mirtazapine 15 MG TAB PO SCH ×2 (00:01→21:22)
[2021-10-18] MEDS: Carvedilol 6.25 MG TAB PO SCH ×3 (00:01→21:21)
[2021-10-18] MEDS: Aspirin 81 mg Enteric Coated Tablet PO SCH (08:27)
[2021-10-18] MEDS: Ezetimibe 10 MG TAB PO SCH (08:27)
[2021-10-18] MEDS: metFORMIN 500 MG TAB PO SCH ×2 (08:27→16:49)
[2021-10-18] MEDS: Cholecalciferol 1,000 UNITS (25 MCG) TAB PO SCH (08:28)
[2021-10-18] MEDS: Zinc Sulfate 220 MG CAP PO SCH (08:28)
[2021-10-18] MEDS: Ascorbic Acid 500 mg Chewable Tablet PO SCH (08:28)
[2021-10-18] MEDS: HumaLOG 300 UNITS/3 ML VIAL SC PRN (16:49)
[2021-10-18] MEDS: Acetaminophen 325 MG TAB PO PRN (21:22)
[2021-10-19] MEDS: Carvedilol 6.25 MG TAB PO SCH ×2 (08:15→20:37)
[2021-10-19] MEDS: Aspirin 81 mg Enteric Coated Tablet PO SCH (08:15)
[2021-10-19] MEDS: metFORMIN 500 MG TAB PO SCH ×2 (08:15→16:55)
[2021-10-19] MEDS: Cholecalciferol 1,000 UNITS (25 MCG) TAB PO SCH (08:15)
[2021-10-19] MEDS: Ezetimibe 10 MG TAB PO SCH (08:15)
[2021-10-19] MEDS: Ascorbic Acid 500 mg Chewable Tablet PO SCH (08:15)
[2021-10-19] MEDS: Famotidine 20 MG TAB PO SCH ×2 (08:15→20:37)
[2021-10-19] MEDS: Zinc Sulfate 220 MG CAP PO SCH (08:15)
[2021-10-19] MEDS: Mirtazapine 15 MG TAB PO SCH (20:37)
[2021-10-19] MEDS: Tamsulosin HCl 0.4 MG CAP PO SCH (20:37)
[2021-10-20] MEDS: metFORMIN 500 MG TAB PO SCH ×2 (09:32→16:39)
[2021-10-20] MEDS: Ascorbic Acid 500 mg Chewable Tablet PO SCH (09:32)
[2021-10-20] MEDS: Ezetimibe 10 MG TAB PO SCH (09:33)
[2021-10-20] MEDS: Zinc Sulfate 220 MG CAP PO SCH (09:33)
[2021-10-20] MEDS: Famotidine 20 MG TAB PO SCH ×2 (09:33→20:09)
[2021-10-20] MEDS: Aspirin 81 mg Enteric Coated Tablet PO SCH (09:33)
[2021-10-20] MEDS: Cholecalciferol 1,000 UNITS (25 MCG) TAB PO SCH (09:33)
[2021-10-20] MEDS: Carvedilol 6.25 MG TAB PO SCH ×2 (09:33→20:09)
[2021-10-20] MEDS: Mirtazapine 15 MG TAB PO SCH (20:09)
[2021-10-20] MEDS: Tamsulosin HCl 0.4 MG CAP PO SCH (20:09)
[2021-10-21] MEDS: Carvedilol 6.25 MG TAB PO SCH ×2 (08:35→21:04)
[2021-10-21] MEDS: metFORMIN 500 MG TAB PO SCH ×2 (08:35→16:40)
[2021-10-21] MEDS: Aspirin 81 mg Enteric Coated Tablet PO SCH (08:35)
[2021-10-21] MEDS: Zinc Sulfate 220 MG CAP PO SCH (08:35)
[2021-10-21] MEDS: Ezetimibe 10 MG TAB PO SCH (08:35)
[2021-10-21] MEDS: Famotidine 20 MG TAB PO SCH ×2 (08:35→21:04)
[2021-10-21] MEDS: Cholecalciferol 1,000 UNITS (25 MCG) TAB PO SCH (08:35)
[2021-10-21] MEDS: Ascorbic Acid 500 mg Chewable Tablet PO SCH (08:35)
[2021-10-21] MEDS: Mirtazapine 15 MG TAB PO SCH (21:04)
[2021-10-21] MEDS: Tamsulosin HCl 0.4 MG CAP PO SCH (21:04)
[2021-10-22] MEDS: Famotidine 20 MG TAB PO SCH ×2 (09:36→20:45)
[2021-10-22] MEDS: Aspirin 81 mg Enteric Coated Tablet PO SCH (09:36)
[2021-10-22] MEDS: metFORMIN 500 MG TAB PO SCH ×2 (09:36→17:07)
[2021-10-22] MEDS: Ascorbic Acid 500 mg Chewable Tablet PO SCH (09:36)
[2021-10-22] MEDS: Ezetimibe 10 MG TAB PO SCH (09:36)
[2021-10-22] MEDS: Carvedilol 6.25 MG TAB PO SCH ×2 (09:36→20:45)
[2021-10-22] MEDS: Cholecalciferol 1,000 UNITS (25 MCG) TAB PO SCH (09:36)
[2021-10-22] MEDS: Zinc Sulfate 220 MG CAP PO SCH (09:39)
[2021-10-22] MEDS: Tamsulosin HCl 0.4 MG CAP PO SCH (20:45)
[2021-10-22] MEDS: Mirtazapine 15 MG TAB PO SCH (20:45)
[2021-10-23] MEDS: Ascorbic Acid 500 mg Chewable Tablet PO SCH (08:26)
[2021-10-23] MEDS: Ezetimibe 10 MG TAB PO SCH (08:26)
[2021-10-23] MEDS: Zinc Sulfate 220 MG CAP PO SCH (08:26)
[2021-10-23] MEDS: metFORMIN 500 MG TAB PO SCH ×2 (08:26→17:15)
[2021-10-23] MEDS: Aspirin 81 mg Enteric Coated Tablet PO SCH (08:26)
[2021-10-23] MEDS: Carvedilol 6.25 MG TAB PO SCH ×2 (08:26→20:51)
[2021-10-23] MEDS: Cholecalciferol 1,000 UNITS (25 MCG) TAB PO SCH (08:26)
[2021-10-23] MEDS: Famotidine 20 MG TAB PO SCH ×2 (08:26→20:50)
[2021-10-23] MEDS: Tamsulosin HCl 0.4 MG CAP PO SCH (20:51)
[2021-10-23] MEDS: Mirtazapine 15 MG TAB PO SCH (20:51)
[2021-10-24] MEDS: Carvedilol 6.25 MG TAB PO SCH ×2 (08:15→20:28)
[2021-10-24] MEDS: Aspirin 81 mg Enteric Coated Tablet PO SCH (08:15)
[2021-10-24] MEDS: metFORMIN 500 MG TAB PO SCH ×2 (08:15→16:38)
[2021-10-24] MEDS: Zinc Sulfate 220 MG CAP PO SCH (08:15)
[2021-10-24] MEDS: Cholecalciferol 1,000 UNITS (25 MCG) TAB PO SCH (08:15)
[2021-10-24] MEDS: Ezetimibe 10 MG TAB PO SCH (08:15)
[2021-10-24] MEDS: Ascorbic Acid 500 mg Chewable Tablet PO SCH (08:15)
[2021-10-24] MEDS: Famotidine 20 MG TAB PO SCH ×2 (08:15→20:28)
[2021-10-24] MEDS: Mirtazapine 15 MG TAB PO SCH (20:28)
[2021-10-24] MEDS: Tamsulosin HCl 0.4 MG CAP PO SCH (20:28)
[2021-10-25] MEDS: Zinc Sulfate 220 MG CAP PO SCH (08:56)
[2021-10-25] MEDS: Famotidine 20 MG TAB PO SCH ×2 (08:56→20:41)
[2021-10-25] MEDS: Aspirin 81 mg Enteric Coated Tablet PO SCH (08:56)
[2021-10-25] MEDS: Ezetimibe 10 MG TAB PO SCH (08:56)
[2021-10-25] MEDS: Carvedilol 6.25 MG TAB PO SCH ×2 (08:56→20:40)
[2021-10-25] MEDS: Ascorbic Acid 500 mg Chewable Tablet PO SCH (08:56)
[2021-10-25] MEDS: metFORMIN 500 MG TAB PO SCH ×2 (08:56→17:34)
[2021-10-25] MEDS: Cholecalciferol 1,000 UNITS (25 MCG) TAB PO SCH (08:56)
[2021-10-25] MEDS: Tamsulosin HCl 0.4 MG CAP PO SCH (20:40)
[2021-10-25] MEDS: Mirtazapine 15 MG TAB PO SCH (20:40)
[2021-10-26] MEDS: Famotidine 20 MG TAB PO SCH (09:23)
[2021-10-26] MEDS: Aspirin 81 mg Enteric Coated Tablet PO SCH (09:23)
[2021-10-26] MEDS: Zinc Sulfate 220 MG CAP PO SCH (09:23)
[2021-10-26] MEDS: Ascorbic Acid 500 mg Chewable Tablet PO SCH (09:23)
[2021-10-26] MEDS: Carvedilol 6.25 MG TAB PO SCH (09:23)
[2021-10-26] MEDS: metFORMIN 500 MG TAB PO SCH (09:23)
[2021-10-26] MEDS: Ezetimibe 10 MG TAB PO SCH (09:23)
[2021-10-26] MEDS: Cholecalciferol 1,000 UNITS (25 MCG) TAB PO SCH (09:24)
[2021-10-26 09:28] VITALS: TEMP 98.1
[2021-10-26 11:58] VITALS: BP 124/75
== END 2021-10-26 12:30 | disposition home health service (06) | DRG 948 ==
LOC: MADMS 20:45
PROVIDERS: ADMIT Family Medicine; ATTEND Family Medicine
DX: R53.1 Weakness (principal); F32.2 Major depressive disorder, single episode, severe without psychotic features; I69.351 Hemiplegia and hemiparesis following cerebral infarction affecting right dominant side; I25.10 Atherosclerotic heart disease of native coronary artery without angina pectoris; N18.9 Chronic kidney disease, unspecified; I12.9 Hypertensive chronic kidney disease with stage 1 through stage 4 chronic kidney disease, or unspecified chronic kidney disease; E11.22 Type 2 diabetes mellitus with diabetic chronic kidney disease; E78.5 Hyperlipidemia, unspecified; F01.50 Vascular dementia, unspecified severity, without behavioral disturbance, psychotic disturbance, mood disturbance, and anxiety; M17.12 Unilateral primary osteoarthritis, left knee; M25.462 Effusion, left knee; G30.9 Alzheimer's disease, unspecified; F02.80 Dementia in other diseases classified elsewhere, unspecified severity, without behavioral disturbance, psychotic disturbance, mood disturbance, and anxiety; R33.9 Retention of urine, unspecified; Z86.16 Personal history of COVID-19; Z95.1 Presence of aortocoronary bypass graft; Z87.440 Personal history of urinary (tract) infections; Z85.3 Personal history of malignant neoplasm of breast; Z90.11 Acquired absence of right breast and nipple; Z90.710 Acquired absence of both cervix and uterus; Z90.89 Acquired absence of other organs; Z98.1 Arthrodesis status; Z79.891 Long term (current) use of opiate analgesic; Z79.899 Other long term (current) drug therapy; Z88.8 Allergy status to other drugs, medicaments and biological substances
CPT/HCPCS: 36416; 80048; 81001; 84550; 85025; 85652; 36415-59; J1650; J1815; J7512; Q0162

== ENCOUNTER 2021-11-08 13:01 | Outpatient (CLI) | payer MEDICARE, OTHER ==
[2021-11-08 13:31] LABS: #Basophils 0.1 thou/uL (0.0-0.2); #Eosinphils 0.3 thou/uL (0.0-0.7); #Lymphocytes 1.8 thou/uL (1.20-3.40); #Monocytes 0.5 thou/uL (0.11-0.59); #Neutrophils 4.4 thou/uL (1.40-6.50); %Basophils 1.8 % (0.0-1.0); %Eosinophils 4.2 % (0.0-10.0); %Lymphocytes 25.8 % (21.0-51.0); %Monocytes 6.4 % (0.0-10.0); %Neutrophils 61.9 % (42.0-75.0); Hemoglobin 13.5 g/dL (12.0-16.0); Mean Corpuscular HGB CONC 32.1 g/dL (32.0-36.0); Mean Corpuscular Hemoglobin 29.1 pg (27.0-31.0); Mean Corpuscular Volume 90.6 fL (78.0-98.0); Mean Platelet Volume 9.5 fL (7.4-10.4); Platelet Count 207 thou/uL (130-400); RBC Distribution Width 12.9 % (11.5-14.5); Red Blood Cell (RBC) Count 4.65 mill/uL (4.20-5.40)
[2021-11-08 13:42] LABS: Anion Gap 12 mmol/L (10-20); BUN (Urea Nitrogen) 20 mg/dL (9.8-20.1); Calc. Creatinine Clearance 0 mL/min (70-130); Calcium 9.1 mg/dL (7.8-10.44); Carbon Dioxide 25 mmol/L (23-31); Chloride 111 mmol/L (98-107); Glucose 97 mg/dL (80-115); Potassium 4.4 mmol/L (3.5-5.1); Sodium 144 mmol/L (136-145)
== END 2021-11-08 13:02 | disposition home or self-care (01) ==
LOC: MADLAB 13:01
PROVIDERS: ATTEND Family Medicine
DX: I12.9 Hypertensive chronic kidney disease with stage 1 through stage 4 chronic kidney disease, or unspecified chronic kidney disease (principal); E11.22 Type 2 diabetes mellitus with diabetic chronic kidney disease; N18.9 Chronic kidney disease, unspecified
CPT/HCPCS: 80048; 85025

== ENCOUNTER 2022-01-09 10:54 | Outpatient (CLI) | payer MEDICARE, OTHER ==
[2022-01-09 11:06] LABS: #Basophils 0.1 thou/uL (0.0-0.2); #Eosinphils 0.2 thou/uL (0.0-0.7); #Lymphocytes 2.5 thou/uL (1.20-3.40); #Monocytes 0.5 thou/uL (0.11-0.59); #Neutrophils 4.7 thou/uL (1.40-6.50); %Basophils 1.1 % (0.0-1.0); %Eosinophils 2.4 % (0.0-10.0); %Lymphocytes 31.3 % (21.0-51.0); %Monocytes 6.8 % (0.0-10.0); %Neutrophils 58.4 % (42.0-75.0); Hemoglobin 14.4 g/dL (12.0-16.0); Mean Corpuscular HGB CONC 32.2 g/dL (32.0-36.0); Mean Corpuscular Hemoglobin 27.8 pg (27.0-31.0); Mean Corpuscular Volume 86.4 fL (78.0-98.0); Mean Platelet Volume 10.7 fL (7.4-10.4); Platelet Count 147 thou/uL (130-400); RBC Distribution Width 13.1 % (11.5-14.5); Red Blood Cell (RBC) Count 5.18 mill/uL (4.20-5.40)
[2022-01-09 11:26] LABS: ALT (SGPT) 22 U/L (8-55); AST (SGOT) 17 U/L (5-34); Alkaline Phosphatase 76 U/L (40-110); Anion Gap 15 mmol/L (10-20); BUN (Urea Nitrogen) 20 mg/dL (9.8-20.1); Bilirubin, Total 0.3 mg/dL (0.2-1.2); Calc. Creatinine Clearance 0 mL/min (70-130); Calcium 9.3 mg/dL (7.8-10.44); Carbon Dioxide 23 mmol/L (23-31); Chloride 109 mmol/L (98-107); Globulin 2.1 g/dL (2.4-3.5); Glucose 97 mg/dL (80-115); Potassium 4.4 mmol/L (3.5-5.1); Protein, Total 6.1 g/dL (5.8-8.1); Sodium 143 mmol/L (136-145)
== END 2022-01-09 10:55 | disposition home or self-care (01) ==
LOC: MADLAB 10:54
PROVIDERS: ATTEND Family Medicine
DX: I12.9 Hypertensive chronic kidney disease with stage 1 through stage 4 chronic kidney disease, or unspecified chronic kidney disease (principal); N18.9 Chronic kidney disease, unspecified; I25.10 Atherosclerotic heart disease of native coronary artery without angina pectoris; E46 Unspecified protein-calorie malnutrition
CPT/HCPCS: 80053; 85025

== ENCOUNTER 2022-08-12 16:50 | Emergency (ER) | payer MEDICARE, OTHER ==
[2022-08-12 18:15] LABS: Band 9 % (5-11); Hemoglobin 15.5 g/dL (12.0-16.0); Lymphocytes 14 % (21-51); MDiff Complete? YES; Mean Corpuscular HGB CONC 33.6 g/dL (32.0-36.0); Mean Corpuscular Volume 86.1 fl (78.0-98.0); Monocytes 6 % (0-10); Neutrophil 71 % (42-75); Platelet Count 163 10x3/uL (130-400); Platelet Morphology Comment Appears Adequate; RBC Distribution Width 11.5 % (11.5-14.5); RBC Morphology Normal; Red Blood Cell (RBC) Count 5.37 mill/uL (4.20-5.40); White Blood Cell (WBC) Count 9.5 10x3/uL (4.8-10.8)
[2022-08-12 18:19] LABS: ALT (SGPT) 12 U/L (8-55); AST (SGOT) 11 U/L (5-34); Albumin 3.9 g/dL (3.4-4.8); Alkaline Phosphatase 88 U/L (40-110); Anion Gap 17 mmol/L (10-20); BUN (Urea Nitrogen) 15 mg/dL (9.8-20.1); Bilirubin, Total 0.9 mg/dL (0.2-1.2); Calc. Creatinine Clearance 0 mL/min (70-130); Calcium 9.2 mg/dL (7.8-10.44); Carbon Dioxide 19 mmol/L (23-31); Chloride 106 mmol/L (98-107); Estimated GFR 59; Glucose 171 mg/dL (80-115); Potassium 3.8 mmol/L (3.5-5.1); Protein, Total 6.9 g/dL (5.8-8.1); Sodium 138 mmol/L (136-145)
[2022-08-12] MEDS ORDERED: Sodium Chloride 0.9% 1,000 ML ONE (18:26)
[2022-08-12 18:36] LABS: CKMB 1.2 ng/mL (0-6.6)
[2022-08-12 18:41] LABS: Bilirubin Negative (Negative); Blood, Urine Trace (Negative); Clarity Clear (Clear); Glucose, Urine (Dipstick) Negative (Negative); Ketone, Urine Trace mg/dL (Negative); Leukocyte Negative (Negative); Nitrite Negative (Negative); Protein, Urine (Dipstick) 30 mg/dL (Neg-Trace); Urobilinogen 0.2 mg/dL (Less than 2)
[2022-08-12 18:44] LABS: Specific Gravity, Urine 1.025 (1.002-1.036)
[2022-08-12 18:48] LABS: Bacteria/HPF 1+ HPF (None Seen); Squamous Epithelial 0-3 HPF (0-3); WBC/HPF 0-3 HPF (0-3)
[2022-08-12] MEDS ORDERED: Sodium Chloride 0.9% 500 ML ONE (18:53)
[2022-08-12 19:29] LABS: SARS-CoV-2 NAA Rapid Test DETECTED (NotDetected)
== END 2022-08-12 20:00 | disposition home or self-care (01) ==
LOC: MADERS 16:50
DX: U07.1 COVID-19 (principal); I25.10 Atherosclerotic heart disease of native coronary artery without angina pectoris; I10 Essential (primary) hypertension; Z79.82 Long term (current) use of aspirin; Z79.899 Other long term (current) drug therapy
CPT/HCPCS: 0240U; 71045; 80053; 82553; 83605; 84484; 85025; 87040; 93005; 36415; 51701; 81003; 81015; 87077; 87149; J7030; J7050